=== PATIENT | female | born 1960 | race African-American/Black ===

== ENCOUNTER 2018-09-05 09:23 | Emergency (ER) | payer MEDICAID, OTHER ==
[~2018-09-05] VITALS: Ht 172.7 cm; Wt 112.0 kg
[2018-09-05 10:00] VITALS: BP 121/83
== END 2018-09-05 10:58 | disposition left against medical advice (07) ==
LOC: ER 10:13
DX: M25.552 Pain in left hip (principal); Z53.21 Procedure and treatment not carried out due to patient leaving prior to being seen by health care provider

== ENCOUNTER 2018-09-05 13:04 | Emergency (ER) | payer MEDICAID ==
[~2018-09-05] VITALS: Ht 172.7 cm; Wt 112.0 kg
[2018-09-05] MEDS ORDERED: KETOROLAC 60MG/2ML VIAL IM ONE (14:00)
[2018-09-05 15:30] VITALS: BP 130/77
== END 2018-09-05 15:39 | disposition home or self-care (01) ==
LOC: ER 13:04
DX: M25.552 Pain in left hip (principal); E11.9 Type 2 diabetes mellitus without complications; E78.00 Pure hypercholesterolemia, unspecified; I10 Essential (primary) hypertension; Z96.659 Presence of unspecified artificial knee joint
CPT/HCPCS: 73502; 96372; 99283; J1885

== ENCOUNTER 2019-03-29 18:43 | Emergency (ER) | payer MEDICAID, OTHER ==
[~2019-03-29] VITALS: Ht 177.8 cm; Wt 120.0 kg
[2019-03-29] MEDS ORDERED: KETOROLAC 60MG/2ML VIAL IM ONE (19:15)
[2019-03-29 19:41] VITALS: BP 142/84
== END 2019-03-29 20:22 | disposition home or self-care (01) ==
LOC: ER 18:43
DX: S39.012A Strain of muscle, fascia and tendon of lower back, initial encounter (principal); V49.50XA Passenger injured in collision with unspecified motor vehicles in traffic accident, initial encounter; Y93.89 Activity, other specified; Y92.410 Unspecified street and highway as the place of occurrence of the external cause; I10 Essential (primary) hypertension
CPT/HCPCS: 96372; 99283; J1885